=== PATIENT | female | born 1940 | race Caucasian/White ===

== ENCOUNTER 2016-04-10 05:52 | Emergency (ER) | payer MEDICARE, OTHER ==
[~2016-04-10] VITALS: Ht 170.2 cm; Wt 80.0 kg
[~2016-04-10 05:52] MED LIST: AMLO-147 PO; IBUP-1542; LORA-441 PO; OMEP20TA42; ROSU5TAB5 PO; TRAM50TA2; [UNRECOGNIZED DRUG - REMARK]
[2016-04-10 05:55] VITALS: Ht 170.2 cm; Wt 80.0 kg
[2016-04-10] MEDS ORDERED: SOD CHLORIDE 0.9% 500 ML IV STA (06:07)
--- NOTE | 2016-04-10 06:35 | RADRPT ---
PROCEDURE: XR Chest. CLINICAL INDICATION: Chest Pain. TECHNIQUE: Portable single view of the chest COMPARISON: 06/21/2015 FINDINGS: There is mild cardiomegaly. Aortic calcification is seen. Pulmonary vascularity is top normal. Th ere is mild interstitial prominence of the lungs without focal infiltrate or pleural effusion. Mild degenerative change of the spine and shoulders. IMPRESSION: Cardiomegaly and mild interstitial prominence. Aortic atherosclerosis. . RPTAT: [facility] Ching Louis Physician Date Time Electronically viewed and signed by Ching Louis Physician on 04/10/2016 06:35 LE/
[2016-04-10 06:45] LABS: BASOPHILS % 0.3 % (0.0-2.0); EOSINOPHILS # 0.1 10^3/ul (0.0-0.5); EOSINOPHILS % 1.5 % (0.0-7.0); HEMATOCRIT 41.1 % (37.0-47.0); HEMOGLOBIN 13.9 g/dl (12.0-16.0); LYMPHOCYTES # 1.4 10^3/ul (0.8-2.9); LYMPHOCYTES % 24.4 % (15.0-51.0); MEAN CORPUSCULAR HEMOGLOBIN 30.4 pg (29.0-33.0); MEAN CORPUSCULAR HGB CONC 33.9 g/dl (32.0-37.0); MEAN CORPUSCULAR VOLUME 89.6 fl (82.0-101.0); MEAN PLATELET VOLUME 7.9 fl (7.4-10.4); MONOCYTE # 0.2 10^3/ul (0.3-0.9); MONOCYTES % 4.2 % (0.0-11.0); NEUTROPHIL # 4.1 10^3/ul (1.6-7.5); NEUTROPHILS % 69.6 % (39.0-77.0); PLATELET COUNT 203 10^3/UL (140-440); RED BLOOD COUNT 4.59 10^6/ul (4.20-5.40); RED CELL DISTRIBUTION WIDTH 13.1 % (11.5-14.5); UNCORRECTED WBC 5.8 10^3/ul (4.8-10.8); WHITE BLOOD COUNT 5.8 10^3/ul (4.8-10.8)
[2016-04-10 06:51] LABS: CONDITION 1
[2016-04-10 06:54] LABS: PROTIME 13.2 Sec (12.2-14.2)
[2016-04-10 06:55] LABS: CHLORIDE 101 mmol/L (97-110); PARTIAL THROMBOPLASTIN TIME 26.5 Sec (25.0-35.0); POTASSIUM 3.6 mmol/L (3.5-5.1); SODIUM 142 mmol/L (135-144)
[2016-04-10 06:57] LABS: CREATININE 0.62 mg/dl (0.44-1.00)
[2016-04-10 06:58] LABS: ANION GAP 15 (8-16); BLOOD UREA NITROGEN 16 mg/dl (7-20); CALCIUM 9.2 mg/dl (8.4-10.2); CARBON DIOXIDE 30 mmol/L (21-31); GLUCOSE 113 mg/dl (70-220)
[2016-04-10] MEDS ORDERED: MECLIZINE 12.5 MG TAB PO ONE (07:00)
[2016-04-10 07:16] LABS: TROPONIN-I < 0.012 ng/ml (0.00-0.12)
--- NOTE | 2016-04-10 08:14 | RADRPT ---
PROCEDURE: CT Brain without contrast. CLINICAL INDICATION: Headache. Hypertension, dizziness. TECHNIQUE: A CT of the brain was performed on a [address] scanner utilizing axial sections from the skull base through the vertex without contrast. Coronal and sagittal reformatted i mages were obtained from the axial source images. Images were reviewed on a high-resolution PACS wor kstation. Exam CTDI = 45.01 mGy and the DLP equals 720.23 mGy-cm. One or the following dose reduction techniques were used: -Automated exposure control. -Adjustment of the mA and/or KV according to patient's size. -Use of iterative reconstruction technique. COMPARISON: None available. FINDINGS: The ventricles and cortical sulci are prominent consistent with mild age related volume loss. There are patchy areas of low attenuation within the periventricular and subcortical white matter consiste nt with minimal chronic ischemic changes secondary to small vessel disease. There is no mass effect or midline shift. There is no intracranial hemorrhage or abnormal extra-axial collection. There are atherosclerotic calcifications within bilateral distal internal carotid arteries. The calvarium is intact. There is no evidence of fracture. There is a small fluid level in the right sphenoid sinus.. Bilateral mastoid air cells are clear. IMPRESSION: 1. No acute intracranial abnormality identified. 2. Mild age related volume loss and minimal chronic ischemic white matter disease. 3. Cerebral atherosclerosis. 4. Small fluid level in the right sphenoid sinus suggesting mild inflammatory change. RPTAT:[facility] Physician [place] Date Time Electronically viewed and signed by Physician [place] on 04/10/2016 08:13 /
--- NOTE | 2016-04-10 08:28 | ERD ---
ER Documentation Chief Complaint Date/Time DATE: 04/10/16 TIME: 08:26 Chief Complaint awoke to use BR, checked BP, finding of high blood pressure HPI This is a 75-year-old female presents to the emergency room for evaluation of weakness, elevated blood pressure and dizziness. She describes her dizziness as a room spinning sensation worse with rapid change in position. The patient does have a history of hypertension and is taking her medications. She states her blood pressure at home was 190 systolic. She denies any chest pain or shortness of breath or palpitations. ROS All systems reviewed and are negative except as per history of present illness. Medications Home Meds Active Scripts Lorazepam* (Ativan*) 0.5 Mg Tablet, 0.5 MG PO Q8H Y for ANXIETY, #14 TAB Prov:BOSTON ALANIZ 06/21/15 Reported Medications Rosuvastatin Calcium* (Crestor*) 5 Mg Tablet, 5 MG PO DAILY 03/20/12 Amlodipine Besylate* (Amlodipine Besylate*) 10 Mg Tablet, 10 MG PO DAILY 03/20/12 Discontinued Reported Medications [faimly to bring meds] No Conflict Check 10/30/13 Tramadol HCl (Tramadol HCl) 50 Mg Tablet, BID 03/20/12 Ibuprofen* (Ibuprofen*) 600 Mg Tablet, TID 03/20/12 Omeprazole (Omeprazole) 20 Mg Tablet., DAILY 03/20/12 Allergies Allergies: Coded Allergies: Penicillins (Verified Allergy, Unknown, 10/31/13) PMhx/Soc Medical and Surgical Hx: pt denies Medical Hx, pt denies Surgical Hx History of Surgery: Yes (hysterectomy) Anesthesia Reaction: No Hx Neurological Disorder: No Hx Respiratory Disorders: No Hx Cardiac Disorders: No Hx Psychiatric Problems: No Hx Miscellaneous Medical Probl: Yes (HTN) Hx Alcohol Use: No Hx Substance Use: No Hx Tobacco Use: No Smoking Status: Never smoker Physical Exam Vitals Vital Signs Date Time Temp Pulse Resp B/P Pulse Ox O2 Delivery O2 Flow Rate FiO2 04/10/16 06:30 65 18 148/71 99 Room Air 04/10/16 05:55 97.8 74 20 194/82 96 Physical Exam INITIAL VITAL SIGNS: Reviewed by me GENERAL: The patient is well developed and appropriate for usual state of health in no apparent distress HEENT: Pupils equal, round, and reactive to light. EOMI. There is no scleral icterus. NECK: C-spine is soft and supple, there is no meningismus. There is no cervical lymphadenopathy. LUNGS: Clear to auscultation bilaterally. There are no rales, wheezes or rhonchi. HEART: Regular rate and rhythm, no murmurs, clicks, rubs or gallops. ABDOMEN: Soft, non-tender, non-distended. There are bowel sounds in all four quadrants. No rebound or guarding. EXTREMITIES: There is no peripheral cyanosis or edema. No focal swelling or erythema. NEUROLOGICAL: The patient moves all four extremities with 5/5 strength. Cranial nerves II - XII are intact. Normal gait. Alert and oriented SKIN: There is no apparent rash or petechiae. HEME/LYMPHATIC: There is no evidence of excessive bruising or lymphedema. PSYCHIATRIC: The patient does not appear anxious or depressed. Result Diagram: 04/10/16 0606 04/10/16 0606 Results 24 hrs Laboratory Tests Test 04/10/16 06:06 Activated Partial Thromboplast Time 26.5Sec Anion Gap 15 Basophils # 0.010^3/ul Basophils % 0.3% Blood Urea Nitrogen 16mg/dl Calcium Level 9.2mg/dl Carbon Dioxide Level 30mmol/L Chloride Level 101mmol/L Creatinine 0.62mg/dl Eosinophils # 0.110^3/ul Eosinophils % 1.5% Glucose Level 113mg/dl Hematocrit 41.1% Hemoglobin 13.9g/dl INR International Normalized Ratio 1.00 Lymphocytes # 1.410^3/ul Lymphocytes % 24.4% Mean Corpuscular Hemoglobin 30.4pg Mean Corpuscular Hemoglobin Concent 33.9g/dl Mean Corpuscular Volume 89.6fl Mean Platelet Volume 7.9fl Monocytes # 0.210^3/ul Monocytes % 4.2% Neutrophils # 4.110^3/ul Neutrophils % 69.6% Nucleated Red Blood Cells # 0.010^3/ul Nucleated Red Blood Cells % 0.0/100WBC Platelet Count 11392^3/UL Potassium Level 3.6mmol/L Prothrombin Time 13.2Sec Prothrombin Time Ratio 1.0 Red Blood Count 4.5910^6/ul Red Cell Distribution Width 13.1% Sodium Level 142mmol/L Troponin I < 0.012ng/ml White Blood Count 5.810^3/ul Current Medications Medications (Trade) Dose Ordered Sig/Ba Route PRN Reason Start Time Stop Time Status Last Admin Dose Admin Sodium Chloride (NS) 500 ml @ 500 mls/hr Q1H STAT IV 04/10/16 06:07 04/10/16 07:06 DC 04/10/16 06:10 Meclizine HCl (Antivert) 25 mg ONCE ONCE PO 04/10/16 07:00 04/10/16 07:01 DC 04/10/16 06:55 Procedures/MDM EKG: Rate/Rhythm: [Normal Sinus Rhythm] QRS, ST, T-waves: [No changes consistent w/ acute ischemia] Impression: [No evidence of ischemia or arrhythmia] Chest X-ray 1V Interpreted by me: Soft Tissue: No acute abnormalities Bones: No acute abnormalities Mediastinum/Cardiac Silhouette/Lungs: [No acute abnormalities] CT head without: No stroke no bleed This 75-year-old female presents to the emergency room for evaluation of high blood pressure and dizziness. This patient's symptoms are vertiginous in nature. She did have lab work drawn including a troponin which was normal, EKG nonischemic, chest x-ray was within normal limits. She was given meclizine and upon my reevaluation her blood pressure is 147/64. She states her dizziness has improved. She is no acute distress, not hypoxic, and hemodynamically stable. This patient will be discharged home at this time with a prescription for meclizine. Departure Diagnosis: Primary Impression: Hypertension Additional Impression: Vertigo Condition: Stable CELE MATOS DO Apr 10, 2016 08:28
[2016-04-10] MEDS ORDERED: MECL12.574 PO (08:29)
[2016-04-10 08:47] VITALS: BP 139/62; PULSE 71; RESP 18; TEMP 97.9
== END 2016-04-10 08:48 | disposition home or self-care (01) ==
LOC: E/R 05:52
DX: I10 Essential (primary) hypertension (principal); R42 Dizziness and giddiness; R07.9 Chest pain, unspecified
CPT/HCPCS: 70450; 71010; 80048; 84484; 85025; 85610; 85730; 93005; J7040; 36415

== ENCOUNTER 2017-05-06 12:34 | Emergency (ER) | END 2017-05-06 17:42 | disposition home or self-care (01) ==